=== PATIENT | male | born 1955 | race Caucasian/White ===

== ENCOUNTER → 2024-04-21 | Outpatient (CLI) | payer MEDICARE ==
[2024-04-21 19:58] LABS: BASOPHILS ABSOLUTE AUTO 0.07 K/mm3 (0.00-0.23); BASOPHILS PERCENT AUTO 1 % (0-2); EOSINOPHILS ABSOLUTE AUTO 0.02 K/mm3 (0.00-0.68); EOSINOPHILS PERCENT AUTO 0 % (0-6); Hematocrit 37.7 % (37.0-53.0); IMMATURE GRAN ABSOLUTE AUTO 0.02 K/mm3 (0.00-0.10); IMMATURE GRAN PERCENT AUTO 0 % (0-1); LYMPHOCYTES ABSOLUTE AUTO 1.58 K/mm3 (0.84-5.20); LYMPHOCYTES PERCENT AUTO 18 % (21-46); MONOCYTES ABSOLUTE AUTO 0.62 K/mm3 (0.16-1.47); MONOCYTES PERCENT AUTO 7 % (4-13); Mean Corpuscular HGB Conc 31.8 g/dL (31.5-36.5); Mean Corpuscular Volume 88 fL (80-100); Mean Platelet Volume 10.2 fL (9.1-12.4); NEUTROPHILS PERCENT AUTO 74 % (41-73); Platelet Count 472 K/mm3 (150-400); RDW Coefficient Variation 14.2 % (11.7-14.2); RDW Standard Deviation 45.1 fL (35.1-46.3); Red Blood Cell Count 4.29 M/mm3 (4.30-5.90); White Blood Cell Count 8.71 K/mm3 (4.00-11.30)
[2024-04-21 20:28] LABS: Alanine Aminotransfer (ALT/SGP 26 U/L (12-78); Albumin, Blood 3.2 g/dL (3.4-5.0); Albumin/Globulin Ratio 0.6 (0.8-1.8); Alk Phos 182 U/L (50-136); Anion Gap 10 mmol/L (3-11); Aspartate Aminotrans (AST/SGOT 22 U/L (12-37); Bilirubin, Total 0.3 mg/dL (0.1-1.0); Blood Urea Nitrogen 18 mg/dL (8-24); Bun/Creatinine Ratio 16.5 (12.0-20.0); CO2, Blood 26 mmol/L (21-32); Calcium, Blood 10.1 mg/dL (8.5-10.1); Chloride, Blood 103 mmol/L (98-108); Creatinine, Blood 1.09 mg/dL (0.60-1.20); Globulin, Blood 5.1 g/dL (2.2-4.0); Glomerular Filtration Rate 74 (60-); Glucose, Blood 99 mg/dL (70-99); Potassium, Blood 4.1 mmol/L (3.5-5.5); Sodium, Blood 135 mmol/L (136-145); Total Protein, Blood 8.3 g/dL (6.4-8.2)
== END | disposition home or self-care (01) ==
LOC: LAB 19:32 → LAB SHORT 19:32
PROVIDERS: Nurse Practitioner Family
DX: R35.0 Frequency of micturition (principal)
CPT/HCPCS: 80053; 83036; 85025; 87086; G0103

== ENCOUNTER → 2024-07-26 | Outpatient (CLI) | payer MEDICARE | END | disposition home or self-care (01) | LOC: LAB SHORT 13:17 → LAB 13:17 | DX: R39.89 Other symptoms and signs involving the genitourinary system (principal) | CPT/HCPCS: 87077; 87086; 87186 ==

== ENCOUNTER → 2024-08-02 | Outpatient (CLI) | payer MEDICARE ==
[2024-08-02 17:02] LABS: BASOPHILS ABSOLUTE AUTO 0.04 K/mm3 (0.00-0.23); BASOPHILS PERCENT AUTO 0 % (0-2); EOSINOPHILS ABSOLUTE AUTO 0.01 K/mm3 (0.00-0.68); EOSINOPHILS PERCENT AUTO 0 % (0-6); Hematocrit 33.1 % (37.0-53.0); Hemoglobin 10.7 g/dL (13.5-17.5); IMMATURE GRAN PERCENT AUTO 1 % (0-1); LYMPHOCYTES ABSOLUTE AUTO 1.18 K/mm3 (0.84-5.20); LYMPHOCYTES PERCENT AUTO 6 % (21-46); MONOCYTES PERCENT AUTO 6 % (4-13); Mean Corpuscular HGB 24.5 pg (26.0-34.0); Mean Corpuscular HGB Conc 32.3 g/dL (31.5-36.5); Mean Corpuscular Volume 76 fL (80-100); Mean Platelet Volume 9.3 fL (9.1-12.4); NEUTROPHILS PERCENT AUTO 86 % (41-73); Platelet Count 818 K/mm3 (150-400); RDW Coefficient Variation 14.8 % (11.7-14.2); Red Blood Cell Count 4.37 M/mm3 (4.30-5.90); White Blood Cell Count 18.63 K/mm3 (4.00-11.30)
[2024-08-02 17:16] LABS: Albumin, Blood 2.1 g/dL (3.4-5.0); Albumin/Globulin Ratio 0.4 (0.8-1.8); Bilirubin, Total 0.5 mg/dL (0.1-1.0); Bun/Creatinine Ratio 19.6 (12.0-20.0); Calcium, Blood 11.2 mg/dL (8.5-10.1); Creatinine, Blood 1.43 mg/dL (0.60-1.20); Globulin, Blood 5.4 g/dL (2.2-4.0); Potassium, Blood 3.5 mmol/L (3.5-5.5); Total Protein, Blood 7.5 g/dL (6.4-8.2)
== END ==
LOC: LAB 16:35 → LAB SHORT 16:35
PROVIDERS: Internal Medicine Hematology & Oncology
DX: C67.8 Malignant neoplasm of overlapping sites of bladder (principal)
CPT/HCPCS: 80053; 85025

== ENCOUNTER 2024-08-09 13:37 | Inpatient (IN) | payer MEDICARE, OTHER ==
[~2024-08-09] VITALS: Ht 180.3 cm; Wt 45.5 kg
[2024-08-09 15:46] LABS: BASOPHILS ABSOLUTE AUTO 0.04 K/mm3 (0.00-0.23); BASOPHILS PERCENT AUTO 0 % (0-2); EOSINOPHILS PERCENT AUTO 0 % (0-6); Hematocrit 32.9 % (37.0-53.0); Hemoglobin 10.3 g/dL (13.5-17.5); IMMATURE GRAN PERCENT AUTO 1 % (0-1); LYMPHOCYTES ABSOLUTE AUTO 0.82 K/mm3 (0.84-5.20); LYMPHOCYTES PERCENT AUTO 4 % (21-46); MONOCYTES ABSOLUTE AUTO 0.94 K/mm3 (0.16-1.47); MONOCYTES PERCENT AUTO 5 % (4-13); Mean Corpuscular HGB 23.6 pg (26.0-34.0); Mean Corpuscular HGB Conc 31.3 g/dL (31.5-36.5); Mean Corpuscular Volume 75 fL (80-100); Mean Platelet Volume 8.8 fL (9.1-12.4); NEUTROPHILS ABSOLUTE AUTO 16.58 K/mm3 (1.96-9.15); NEUTROPHILS PERCENT AUTO 89 % (41-73); RDW Coefficient Variation 15.8 % (11.7-14.2); RDW Standard Deviation 42.8 fL (35.1-46.3); Red Blood Cell Count 4.37 M/mm3 (4.30-5.90); White Blood Cell Count 18.58 K/mm3 (4.00-11.30)
[2024-08-09 15:52] LABS: Platelet Count 1098 K/mm3 (150-400)
[2024-08-09 16:09] LABS: Albumin, Blood 2.3 g/dL (3.4-5.0); Albumin/Globulin Ratio 0.4 (0.8-1.8); Bilirubin, Total 0.6 mg/dL (0.1-1.0); Bun/Creatinine Ratio 25.4 (12.0-20.0); Calcium, Blood 11.7 mg/dL (8.5-10.1); Creatinine, Blood 1.73 mg/dL (0.60-1.20); Globulin, Blood 5.8 g/dL (2.2-4.0); Potassium, Blood 3.8 mmol/L (3.5-5.5); Total Protein, Blood 8.1 g/dL (6.4-8.2)
[2024-08-09] MEDS ORDERED: Lactated Ringer's 1,000 ML IV ONE (17:35)
[2024-08-09] MEDS ORDERED: CefTRIAXone Sodium 2,000 MG in NS 100 ML IV ONE (17:40)
[2024-08-09] MEDS ORDERED: HYDROmorphone HCl/Pf 1MG SYR IV ONE (17:50)
[2024-08-09 18:12] LABS: Source, Urine Nephrostomy
[2024-08-09 18:15] LABS: Appearance, Urine Cloudy (Clear); Bilirubin, Urine Neg (Neg); Blood, Urine 5+ (Neg); Color, Urine Yellow (P-Yellow); Glucose Qualitative, Urine Neg (Neg); Ketones, Urine Neg (Neg); Leukocyte Esterase, Urine 3+ (Neg); Nitrite, Urine Neg (Neg); Protein, Urine 2+ (Neg); Urobilinogen, Urine NORM (Normal)
[2024-08-09 18:25] LABS: White Blood Cells, Urine 50-100 /hpf (0-5)
[2024-08-09 18:26] LABS: Amorphous Light (0-Heavy); Bacteria Many /hpf; Hyaline Casts 0-2 /lpf (0-2); Squamous Epithelial Cells Few /hpf (Few)
[2024-08-09 18:27] LABS: Granular Casts 0-2 /lpf (0)
[2024-08-09 18:29] LABS: Renal Epithelial Rare /hpf (0-Rare)
[2024-08-09] MEDS ORDERED: Lactated Ringer's 1,000 ML IV SCH (20:30)
[2024-08-09] MEDS ORDERED: HYDROcodone 5-APAP 325 TAB PO PRN (20:35)
[2024-08-09] MEDS ORDERED: Ondansetron HCl 2 MG / ML 2ML Vial IV PRN (20:35)
[2024-08-09] MEDS ORDERED: Albuterol 2.5 MG/3 ML VIAL INH PRN (20:35)
[2024-08-09 20:39] LABS: Source, Urine Clean Catch
[2024-08-09] MEDS ORDERED: Lactated Ringer's 500 ML IV ONE (21:00)
[2024-08-09] MEDS ORDERED: Heparin Sodium,Porcine 5,000 UNIT/0.5 ML SDV SC SCH (21:00)
[2024-08-09] MEDS ORDERED: Lactobacil 2-S.Thermo-Bifido 1 1 Cap PO SCH ×2 (21:00)
[2024-08-09 22:04] LABS: Amorphous Heavy (0-Heavy); Bacteria Many /hpf; Squamous Epithelial Cells Rare /hpf (Few); Triple Phosphate Crystals Many /hpf
[2024-08-09 22:06] LABS: Source, Urine Nephrostomy
[2024-08-09 22:12] LABS: Appearance, Urine Hazy (Clear); Bilirubin, Urine Neg (Neg); Blood, Urine 5+ (Neg); Color, Urine Yellow (P-Yellow); Glucose Qualitative, Urine Neg (Neg); Ketones, Urine Neg (Neg); Leukocyte Esterase, Urine 3+ (Neg); Nitrite, Urine Neg (Neg); Protein, Urine 2+ (Neg); Specific Gravity, Urine 1.015 (1.003-1.022); Urobilinogen, Urine NORM (Normal)
[2024-08-09 22:30] LABS: Amorphous Mod (0-Heavy); Bacteria Many /hpf; Mucus Light (0-Heavy); Squamous Epithelial Cells Rare /hpf (Few); White Blood Cells, Urine 50-100 /hpf (0-5)
[2024-08-09 22:31] LABS: Triple Phosphate Crystals Rare /hpf
[2024-08-09 22:33] LABS: Appearance, Urine Hazy (Clear); Bilirubin, Urine Neg (Neg); Blood, Urine 5+ (Neg); Color, Urine Pale Yellow (P-Yellow); Glucose Qualitative, Urine Neg (Neg); Ketones, Urine Neg (Neg); Leukocyte Esterase, Urine 3+ (Neg); Nitrite, Urine Neg (Neg); Protein, Urine 4+ (Neg); Specific Gravity, Urine 1.015 (1.003-1.022); Urobilinogen, Urine NORM (Normal)
[2024-08-09 23:39] VITALS: BP 115/68
--- NOTE | 2024-08-10 00:28 | NUR ---
ADMIT NOTE 68 YR OLD MALE ADMITTED TO FLOOR FROM THE ED WITH DX OF INFESTION OF NEPHROSTOMY TUBE. ED REPORTED ALSO SOME APPARENT HALLUCINATIONS. UPON ARRIVAL, NOTE BILAT NEPHROSTOMY TUBES. LEFT DRAINIG 300 CC, RIGHT EMPTIED ABOUT 20 ML. ALERT AND ORIENTED TO QUESTIONS ASKED. ORIENTED TO USE OF CALL LIGHT. CALL LIGHT IN REACH. NPO FOR POSSIBLE PROCEDURE.
[2024-08-10] MEDS ORDERED: Piperacillin/Tazobactam Sod 2.25 GM in NS 50 ML IV SCH (00:39)
[2024-08-10] MEDS ORDERED: NS 250 ML IV PRN (01:20)
--- NOTE | 2024-08-10 02:13 | NUR ---
CALLING OUT AT INTERVALS, VERBAL RESPONSE NOT CONGRUENT WITH SURROUNDINGS. CALLING OUT TO DOGS AND INDIVIDUALS NOT IN THE ROOM. CALL LIGHT IN REACH. REDIRECTED.
--- NOTE | 2024-08-10 03:51 | NUR ---
FAST FOOD SALES ASSISTANT SUMMARY VSS. WAS ADMITTED EARLIER IN THE SHIFT WITH DX OF INFECTION OF NEPHROSTIMY CATH. HAS BILAT NEPHROSTOMY TUBES. ALSO, NOTED ON SKIN CHECK, SMALL STAGE 2 ULCER OF COCCYX. MD WAS NOTIFIED ANDD ANTIBIOTICS ORDERED - SEE MAR AND COCCYX COVERED WITH MEPILEX FOR COMFORT. AWAKE AT INTERVALS, CALLING OUT TO INDIVIVUALS AND A DOG THAT WERE NOT IN THE ROOM. ED RN REPORTED PT HAD BEEN HALLUCINATING IN THE ED. ORIENTED TO UE OF CALL LIGHT AND BED CONTROL. RAILS UP X 2 AND BED IN LOW POSITION FOR SAFETY. PT PULLED OFF ONE IV AND WAS REDIRECTED RE THE OTHER. IVF/AND ANTIBIOTICS INFUSING - SEE MAR FOR DETAILS. CONSULT CALLED IN FOR MD CONSULT RE NEPH TUBE. WILL MONITOR
[2024-08-10 05:22] VITALS: BP 114/70
[2024-08-10 05:52] LABS: BASOPHILS ABSOLUTE AUTO 0.01 K/mm3 (0.00-0.23); BASOPHILS PERCENT AUTO 0 % (0-2); EOSINOPHILS PERCENT AUTO 0 % (0-6); Hematocrit 26.2 % (37.0-53.0); Hemoglobin 8.2 g/dL (13.5-17.5); IMMATURE GRAN ABSOLUTE AUTO 0.09 K/mm3 (0.00-0.10); IMMATURE GRAN PERCENT AUTO 1 % (0-1); LYMPHOCYTES ABSOLUTE AUTO 0.99 K/mm3 (0.84-5.20); LYMPHOCYTES PERCENT AUTO 8 % (21-46); MONOCYTES ABSOLUTE AUTO 0.92 K/mm3 (0.16-1.47); MONOCYTES PERCENT AUTO 7 % (4-13); Mean Corpuscular HGB 23.7 pg (26.0-34.0); Mean Corpuscular HGB Conc 31.3 g/dL (31.5-36.5); Mean Corpuscular Volume 76 fL (80-100); Mean Platelet Volume 8.7 fL (9.1-12.4); NEUTROPHILS ABSOLUTE AUTO 11.25 K/mm3 (1.96-9.15); NEUTROPHILS PERCENT AUTO 85 % (41-73); Platelet Count 875 K/mm3 (150-400); RDW Coefficient Variation 15.8 % (11.7-14.2); RDW Standard Deviation 43.1 fL (35.1-46.3); Red Blood Cell Count 3.46 M/mm3 (4.30-5.90); White Blood Cell Count 13.26 K/mm3 (4.00-11.30)
[2024-08-10 06:17] LABS: Bun/Creatinine Ratio 28.1 (12.0-20.0); Calcium, Blood 10.8 mg/dL (8.5-10.1); Creatinine, Blood 1.53 mg/dL (0.60-1.20); Magnesium, Blood 1.6 mg/dL (1.6-2.4); Potassium, Blood 3.1 mmol/L (3.5-5.5)
[2024-08-10 07:13] VITALS: BP 125/64
--- NOTE | 2024-08-10 16:47 | NUR ---
SHIFT SUMMARY PT AOX2-3, SISTER AT THE BS. SHE IS VERY HELPFUL IN KEEPING THE PT CALM AND PREVENTING HIM FROM PULLING ANY IV'S. PT HAS BL NEPHROSTOMY TUBES, THE R HAS MINIMAL TO NO DRAINAGE. L NEPHROSTOMY HAS OUTPUT, DOCUMENTED IN THE CHART. PT IS TO BE NPO AT MIDNIGHT TONIGHT FOR NEPHROSTOMY TUBE REPLACEMENT. REPOSITIONS SELF IN BED. NO ACUTE COMPLAINTS. CALL LIGHT WITHIN REACH, BED LOCKED AND IN THE LOWEST POSITION. WILL REPORT TO ONCOMING NURSE.
[2024-08-10 16:57] VITALS: BP 133/72
[2024-08-10] MEDS ORDERED: Nicotine 14 MG PATCH TOP SCH (17:00)
[2024-08-10 19:42] VITALS: BP 103/67
[2024-08-10] MEDS ORDERED: Arginine/Glutamine/Calcium Hmb 1 Packet PO SCH (21:00)
[2024-08-11 02:31] VITALS: BP 122/60
--- NOTE | 2024-08-11 03:28 | NUR ---
TAB CUTTING MACHINE OPERATOR SUMMARY VSS. MORE ALERT TO QUESTIONS ASKED THAN NOTICED 24 HR AGO. SISTER AT BEDSIDE FOR PT SUPPORT, PT VOICED FEELING BETTER WITH HER NEAR. IV ANTIBIOTICS INFUSING. NPO SINCE MIDNIGHT FOR PROCEDURE SCHEDULED LATER TODAY. BILAT NEPHROSTOMY TUBES, LEFT DRAINING, RIGHT SIDE NOT DRAINING WELL. HAS BEEN RESTING QUIETLY AT INTERVALS. CALL LIGHT IN REACH, RAILS UP X 2 AND BED IN LOW POSITION FOR SAFETY. WILL CONTINUE TO MONITOR
[2024-08-11 06:40] LABS: Magnesium, Blood 1.5 mg/dL (1.6-2.4); Phosphorus, Blood 2.7 mg/dL (2.5-4.9)
[2024-08-11 07:18] VITALS: BP 123/66
[2024-08-11] MEDS ORDERED: Mag Sulfate 1 GM/D5% 100ML 100 ML IV STA (08:09)
[2024-08-11 08:20] LABS: BASOPHILS ABSOLUTE AUTO 0.01 K/mm3 (0.00-0.23); BASOPHILS PERCENT AUTO 0 % (0-2); EOSINOPHILS PERCENT AUTO 0 % (0-6); Hematocrit 24.9 % (37.0-53.0); Hemoglobin 7.9 g/dL (13.5-17.5); IMMATURE GRAN PERCENT AUTO 1 % (0-1); LYMPHOCYTES PERCENT AUTO 8 % (21-46); MONOCYTES PERCENT AUTO 7 % (4-13); Mean Corpuscular HGB 24.4 pg (26.0-34.0); Mean Corpuscular HGB Conc 31.7 g/dL (31.5-36.5); Mean Corpuscular Volume 77 fL (80-100); Mean Platelet Volume 9.1 fL (9.1-12.4); NEUTROPHILS ABSOLUTE AUTO 12.07 K/mm3 (1.96-9.15); NEUTROPHILS PERCENT AUTO 85 % (41-73); Platelet Count 846 K/mm3 (150-400); RDW Standard Deviation 44.7 fL (35.1-46.3); Red Blood Cell Count 3.24 M/mm3 (4.30-5.90); White Blood Cell Count 14.28 K/mm3 (4.00-11.30)
[2024-08-11 08:31] LABS: Bun/Creatinine Ratio 24.6 (12.0-20.0); Calcium, Blood 10.5 mg/dL (8.5-10.1); Creatinine, Blood 1.75 mg/dL (0.60-1.20)
[2024-08-11] MEDS ORDERED: Thiamine HCl 100 MG Tab PO SCH (09:00)
[2024-08-11] MEDS ORDERED: Multivitamins 1 Tab PO SCH (09:00)
[2024-08-11] MEDS ORDERED: Folic Acid 1 MG TAB PO SCH (09:00)
[2024-08-11] MEDS ORDERED: Potassium Chloride 40 MEQ in NS 250 ML IV STA (15:39)
[2024-08-11 15:56] VITALS: BP 123/75
--- NOTE | 2024-08-11 16:05 | NUR ---
PATIENT UPPER ARMS STOPPED MOVING THIS AM, REPORTED TO DR FRANCIS, NEGATIVE NEURO CHECK, PUPILS EQUAL, MOVING FINGER TIPS NOW. JUST BACK FROM SPINE MRI, WAITING FOR RESULTS, SISTER AT BEDSIDE HELPFUL WITH CARE, CHANGED COCCYX MEPILEX, CALL LIGHT WITH IN REACH
[2024-08-11 19:18] VITALS: BP 147/86
--- NOTE | 2024-08-11 19:37 | NUR ---
NO IMPROVEMENT IN ARMS, SISTER HELPFUL AT BEDSIDE, PUPILS EVEN, HALLUCINATING THINGS IN THE ROOM, SPEECH MORE MUMBLED. MRI RESULTS IN REPORTED TO PATIENT AND FAMILY TO WAITING FOR THE DR TO EXPLAIN RESULTS. PT/OT TO WORK WITH PATIENT TOMORROW. CALL LIGHT WITH IN REACH, REPORT TO KERRY LARSON
--- NOTE | 2024-08-12 04:26 | NUR ---
SHIFT SUMMARY PATIENT HAD NO ACUTE CHANGES. AXOX 2-3 WITH CONFUSION AND HALLUCINATIONS AT TIMES. BEDREST. ARMS REMAIN FLACCID SINCE DAY SHIFT. RIGHT PUPIL LARGER THAN LEFT. PIV INTACT. IV ABX INFUSED. LR INFUSING @ 125 mL/HR. DENIES CHEST PAIN, SOB, AND N/V. VSS/AFEBRILE. SISTER STAYS OVERNIGHT. CALL LIGHT IN REACH. BED IN LOWEST POSITION. WILL CONTINUE TO MONITOR UNTIL DAY SHIFT NURSE ASSUMES CARE.
[2024-08-12 05:38] LABS: BASOPHILS ABSOLUTE AUTO 0.02 K/mm3 (0.00-0.23); BASOPHILS PERCENT AUTO 0 % (0-2); EOSINOPHILS PERCENT AUTO 0 % (0-6); Hematocrit 24.7 % (37.0-53.0); Hemoglobin 7.5 g/dL (13.5-17.5); IMMATURE GRAN ABSOLUTE AUTO 0.13 K/mm3 (0.00-0.10); IMMATURE GRAN PERCENT AUTO 1 % (0-1); LYMPHOCYTES ABSOLUTE AUTO 0.93 K/mm3 (0.84-5.20); LYMPHOCYTES PERCENT AUTO 7 % (21-46); MONOCYTES ABSOLUTE AUTO 0.74 K/mm3 (0.16-1.47); MONOCYTES PERCENT AUTO 5 % (4-13); Mean Corpuscular HGB 23.7 pg (26.0-34.0); Mean Corpuscular HGB Conc 30.4 g/dL (31.5-36.5); Mean Corpuscular Volume 78 fL (80-100); Mean Platelet Volume 9.1 fL (9.1-12.4); NEUTROPHILS ABSOLUTE AUTO 12.26 K/mm3 (1.96-9.15); NEUTROPHILS PERCENT AUTO 87 % (41-73); Platelet Count 839 K/mm3 (150-400); RDW Coefficient Variation 16.3 % (11.7-14.2); RDW Standard Deviation 45.9 fL (35.1-46.3); Red Blood Cell Count 3.16 M/mm3 (4.30-5.90); White Blood Cell Count 14.08 K/mm3 (4.00-11.30)
[2024-08-12 06:06] LABS: Bun/Creatinine Ratio 24.5 (12.0-20.0); Calcium, Blood 11.1 mg/dL (8.5-10.1); Creatinine, Blood 1.51 mg/dL (0.60-1.20); Magnesium, Blood 1.5 mg/dL (1.6-2.4); Phosphorus, Blood 2.3 mg/dL (2.5-4.9)
[2024-08-12 07:57] VITALS: BP 130/75
[2024-08-12] MEDS ORDERED: Mag Sulfate 1 GM/D5% 100ML 100 ML IV STA (11:32)
[2024-08-12] MEDS ORDERED: Potassium Phosphate Dibasic 30 MM in Dextrose 5% 500 ML IV STA (11:33)
[2024-08-12 14:56] VITALS: BP 137/70
--- NOTE | 2024-08-12 16:42 | NUR ---
SUPPORTIVE VISIT - CALLED TO ROOM BY PRIMARY RN PROVIDER WAS IN ROOM UPDATING PT AND HIS SISTER ON WORSENING CANCER DX. PT IS ALERT, ORIENTED TO SELF, FAMILY AND LOCATION. IT IS DIFFICULT TO ASSESS HIS FULL UNDERSTANDING OF NEW DX. SPEECH IS DIFFICULT TO UNDERSTAND AT TIMES. HIS SPEECH IS AT BASELINE PER HIS SISTER. THIS PC RN REPEATED BACK TO PT HIS STATEMENTS FOR CLARIFICATION. HE WOULD EITHER SHAKE HIS HEAD NO OR SMILE AND NOD YES. WHEN ASKED ABOUT CODE STATUS, PT CONFIRMED HE WANTS TO REMAIN A FULL CODE AND FULL TREATMENT, INCLUDING INTUBATION IF NEEDED. [facility] EDUCATION ON CPR VS DNR PROVIDED. DORA VERBALIZED HIS SISTER EDGARD NEGRETE IS HIS DECISION MAKER WHEN HE CAN NO LONGER SPEAK FOR HIMSELF. EDGARD REPORTS PT HAS HAD A STEADY DECLINE IN THE LAST THREE WEEKS. HIS MOBILITY HAS GONE FROM WALKING AROUND THE HOUSE MULTIPULE TIMES A DAY TO BARELY BEING ABLE TO WALK AROUND HIS BED. INCONTENT OF BLADDER IN THE LAST COUPLE OF DAYS. YESTERDAY HE WAS ABLE TO DRINK WITH A STRAW. THIS MORNING HE WAS ONLY ABLE TO TAKE FLUIDS OFF OF A SPOON. PT LIVES WITH HIS SISTER, EDGARD, BROTHER IN LAW AND FRIEND, JEFF. PERMISSION RECEIVED TO TALK WITH JEFF HIDALGOJAVIER RECEIVED. OBTAINED ORDERS FROM PROVIDER TO CHANGE DIET, SPEECH AND DIETARY EVALS. ORDERS PLACED ACCORDINGLY.
--- NOTE | 2024-08-12 17:57 | NUR ---
PATIENT MENTATION, INTAKE, PHYSICAL MOVEMENTS HAVE CONTINUED TO DECREASE, PALLIATIVE CONSULT, PATIENT AND SISTER AGREED TO FULL CODE AT THIS TIME, PATIENT ONLY WHISPERING AND MOUTHING WORDS. FAMILY MEMBERS CAME TO VISIT, NEW MEPILEX TO STAGE ONE COCCYX ULCER, JOHN NEP TUBES DRAINING L>R, HEART RATE INCREASED 127, RESPS INCREASED TO 30'S, TEMP INCREASED, REFUSED PAIN MEDICATIONS OR TYLENOL. CALL LIGHT WITH IN REACH, SISTER EDGARD HELPFUL WITH CARE AND PATIENT NEEDS
[2024-08-12 19:17] VITALS: BP 151/77
[2024-08-12] MEDS ORDERED: Ciprofloxacin 400MG/D5 200ML 200 ML IV SCH (20:00)
[2024-08-12] MEDS ORDERED: Dexamethasone Sodium Phosphate 4 MG/ML 1ML Vial IV SCH (20:00)
--- NOTE | 2024-08-13 04:08 | NUR ---
SHIFT SUMMARY PATIENT HAD NO ACUTE CHANGES. ALERT TO SELF AND FAMILY, BEDREST. PIV INTACT. IV ABX INFUSED. LR INFUSING @ 125 mL/HR. BILATERAL NEPHROSTOMY TUBES INTACT. DENIES CHEST PAIN, SOB, AND N/V. VSS/AFEBRILE. ARMS FLACCID. SPEECH MUMBLES. CONSULT CALLED INTO DR FERNANDEZ ANSWERING SERVICE. AWAKE MOST OF THE SHIFT. FAMILY PRESENT T/O SHIFT. CALL LIGHT IN REACH. BED IN LOWEST POSITION. WILL CONTINUE TO MONITOR UNTIL DAY SHIFT NURSE ASSUMES CARE.
[2024-08-13 04:56] VITALS: BP 145/75
[2024-08-13 06:06] LABS: BASOPHILS ABSOLUTE AUTO 0.01 K/mm3 (0.00-0.23); BASOPHILS PERCENT AUTO 0 % (0-2); EOSINOPHILS PERCENT AUTO 0 % (0-6); Hematocrit 25.1 % (37.0-53.0); Hemoglobin 7.4 g/dL (13.5-17.5); IMMATURE GRAN PERCENT AUTO 1 % (0-1); LYMPHOCYTES ABSOLUTE AUTO 0.97 K/mm3 (0.84-5.20); LYMPHOCYTES PERCENT AUTO 7 % (21-46); MONOCYTES ABSOLUTE AUTO 0.67 K/mm3 (0.16-1.47); MONOCYTES PERCENT AUTO 5 % (4-13); Mean Corpuscular HGB 23.9 pg (26.0-34.0); Mean Corpuscular HGB Conc 29.5 g/dL (31.5-36.5); Mean Corpuscular Volume 81 fL (80-100); NEUTROPHILS ABSOLUTE AUTO 12.52 K/mm3 (1.96-9.15); NEUTROPHILS PERCENT AUTO 88 % (41-73); Platelet Count 721 K/mm3 (150-400); RDW Coefficient Variation 16.8 % (11.7-14.2); RDW Standard Deviation 49.1 fL (35.1-46.3); Red Blood Cell Count 3.09 M/mm3 (4.30-5.90); White Blood Cell Count 14.27 K/mm3 (4.00-11.30)
[2024-08-13 06:31] LABS: Albumin, Blood 1.8 g/dL (3.4-5.0); Albumin/Globulin Ratio 0.4 (0.8-1.8); Bilirubin, Total 0.3 mg/dL (0.1-1.0); Bun/Creatinine Ratio 21.2 (12.0-20.0); Calcium, Blood 10.5 mg/dL (8.5-10.1); Creatinine, Blood 1.65 mg/dL (0.60-1.20); Globulin, Blood 4.3 g/dL (2.2-4.0); Magnesium, Blood 1.8 mg/dL (1.6-2.4); Percent Saturation 13.2 % (20.0-50.0); Phosphorus, Blood 3.9 mg/dL (2.5-4.9); Potassium, Blood 3.8 mmol/L (3.5-5.5); Total Protein, Blood 6.1 g/dL (6.4-8.2)
[2024-08-13 07:29] VITALS: BP 127/75
--- NOTE | 2024-08-13 09:37 | NUR ---
COLLABORATED WITH MANAGER HUMAN RESOURCES RE: PT'S UNINTENTIONAL WT LOSS SINCE THE END OF MARCH. PT REPORTS HIS LAST WT WAS 120 LBS, BMI 16.7. HE'S NOT SURE WHEN THAT WT WAS TAKEN (LAST COUPLE OF MONTHS). WT AT START OF THIS ADMISSION WAS 100 LBS. BMI 13.9 CACHECTIC. WITH PT'S RAPID RESPIRATORY RATE WITH ACCESSORY MUSCLE USE AT BASELINE IS LIKELY BURNING OFF MORE CALORIES THAN PT IS TAKING IN. MANAGER HUMAN RESOURCES TO EVALUATE PT'S CALORIC NEEDS AND POTENTIAL OPTIONS TO INCREASE CALORIES AND PROTEINS.
--- NOTE | 2024-08-13 13:06 | NUR ---
GOALS OF CARE JOINT VISIT WITH PROVIDER. MET WITH PT, SISTER DEGARD, BROTHER ZAYNAB "KRISTEL", SISTER [place]. DORA GREETED PROVIDER AND THIS PC RN WITH A GRIN AND WAS WELCOMING OF VISIT. PROVIDER REVIEWED CANCER DX AND PROGRESSION OF. SHE INFORMED PT AND FAMILY OF HER CONVERSATION WITH DR. FERNANDEZ (PT'S ESTABLISHED ONCOLOGIST). PROGNOSIS IS POOR AND CHEMO WOULD BE PALLIATIVE ONLY. IT'S IMPORTANT TO DORA THAT HE BE ABLE TO GET OUT OF BED. HE HAS NOT BEEN ABLE TO GET OUT OF BED THIS VISIT. HE'S NOT BEEN ABLE TO LIFT HIS ARMS INDEPENDENTLY EITHER. HE HAS REQUIRED FEEDING ASSISTANCE WITH MEALS. SUDDEN LIMITED MOBILITY LIKELY D/T MET TO SPINE WITH POSSIBLE COMPRESSION OF NERVES. PT/OT ORDERED TO EVALUATE PT'S ABILITIES FOR PT'S METAL HEALTH AND HIS SISTERS EXPECTED CARES ON D/C HOME. HOPE IS FOR CURRENT TX OF ABX AND STERIODS TO RESOLVE SEPSIS AND REDUCE INFLAMATION. PROVIDED EDUCAION RE: HOSPICE AND THE SUPPORTS HOSPICE PROVIDERS. ALLOWED TIME FOR QUESTIONS. THERAPUTIC LISTENING PROVIDED FOR SISTER AND BROTHER. PT'S GOAL IS TO RETURN HOME AND FOCUS ON QUALITY OF LIFE. HE STATED, "I DON'T WANT TO . I WANT TO HELP PEOPLE. I WANT TO LEAVE THEM WITH A SMILE." REASSURED PT, HOSPICE IS NOT TO SPEED UP THE DYING PROCESS. HOSPICE IS FOR SYMPTOM MANAGEMENT, FOCUSING CARE ON QUALITY OF LIFE AND ADDITIONAL SUPPORT. AFTER THOUROGH EDUCATION FROM PROVIDER AND PC RN, PT ELECTS TO BE DNR WITH LIMITED MEDICAL INTERVENTIONS. POLST FORM COMPLETED TO REFLECT PT'S WISHES. WITH PT'S INABLILITY TO RAISE HIS ARMS, HE ELECTED SISTER EDGARD TO SIGN THE POLST. PLAN: D/C HOME WITH HOSPICE ONCE PT HAS BEEN OPTIMIZED FOR MANAGEMENT OF INFECTION, INFLAMATION AND PAIN. UPDATED BEDSIDE RN OF CARE GOALS AND UPDATED CODE STATUS. NOTIFIED CARE MANAGEMENT BY PHONE FOR D/C PLANNING. ORDERS PLACED PER PROVIDER REQUEST.
[2024-08-13 15:29] VITALS: BP 119/58
[2024-08-13] MEDS ORDERED: Dextrose 5% 1,000 ML IV SCH (18:00)
[2024-08-13 19:25] VITALS: BP 123/75
[2024-08-14] VITALS (7 sets, daily range): BP systolic 115–139; BP diastolic 72–75
--- NOTE | 2024-08-14 04:11 | NUR ---
SHIFT SUMMARY PATIENT MORE ALERT THIS SHIFT. AXOX 3 AND BEDREST. LOTS OF FAMILY IN-OUT OF ROOM. BROTHER AND SPOUSE STAYING OVERNIGHT. DENIES CHEST PAIN AND N/V. VSS/AFEBRILE. ON 2L O2 NC. PIV INTACT. IV ABXS INFUSED. D5 INFUSING @ 100mL/HR. CALL LIGHT IN REACH. BED IN LOWEST POSITION. WILL CONTINUE TO MONITOR UNTIL DAY SHIFT NURSE ASSUMES CARE.
[2024-08-14 05:47] LABS: Hematocrit 24.6 % (37.0-53.0); Hemoglobin 7.5 g/dL (13.5-17.5); Mean Corpuscular HGB 24.3 pg (26.0-34.0); Mean Corpuscular HGB Conc 30.5 g/dL (31.5-36.5); Mean Corpuscular Volume 80 fL (80-100); Mean Platelet Volume 9.2 fL (9.1-12.4); Platelet Count 615 K/mm3 (150-400); RDW Coefficient Variation 16.8 % (11.7-14.2); Red Blood Cell Count 3.09 M/mm3 (4.30-5.90); White Blood Cell Count 16.65 K/mm3 (4.00-11.30)
[2024-08-14 06:18] LABS: Calcium, Blood 10.6 mg/dL (8.5-10.1); Creatinine, Blood 1.38 mg/dL (0.60-1.20); Potassium, Blood 3.8 mmol/L (3.5-5.5)
[2024-08-14] MEDS ORDERED: Dextrose 5% 1,000 ML IV SCH (17:10)
--- NOTE | 2024-08-14 17:52 | NUR ---
END OF SHIFT NOTE PATIENT A/OX2-3, FAMILY AT BEDSIDE TROUGHOUT THE DAY. 5LO2 TO MAINTAIN SATS >90%. NEPHROSTOMY DRAINS BILATERALLY, L PUTTING OUT MUCH MORE THAN R. DRESSING CHANGED TO PRESSURE SORE ON COCCYX. TURNING Q2 HOURS. PATIENT VERY WEAK AND ON BEDREST. ST PLACED PATIENT ON PUREE DIET TODAY, POOR INTAKE. DIARRHEA X2 THIS SHIFT. PATIENT DENIES ANY PAIN OR DISCOMFORT. PLAN IS HOME WITH HOSPICE CARE TOMORROW.
[2024-08-14] MEDS ORDERED: Sod Ferric Gluc Complx/Sucrose 125 MG in NS 100 ML IV SCH (18:00)
[2024-08-15] MEDS ORDERED: LORazepam 2 MG/ML 1ML Injection IV PRN ×3 (00:55→02:45)
[2024-08-15] MEDS ORDERED: LORazepam 2 MG/ML 1ML Injection IV ONE ×2 (01:00→01:25)
[2024-08-15 01:29] VITALS: BP 163/82
--- NOTE | 2024-08-15 02:05 | NUR ---
PT RESP STATUS SIGNIFICANTLY DECLINING: AT BEGINNING OF SHIFT, PT'S SPO2 WAS 80'S% ON 5L O2 VIA NC W/SHALLOW TACHY RESPS OBSERVED AND COARSE LS AUSCULTATED BILATERALLY. O2 WAS TITRATED TO 9L HIGH FLOW O2 TO MAINTAIN SPO2>90%. RT CONSULTED AND PROVIDED BREATHING TX FOR MILD IMPROVEMENT IN WOB/DYSPNEA. NOTIFIED OF INCREASED O2 DEMANDS IN PRESENCE OF CONTINUED O2 DESATURATIONS, TACHYPNEA AND TACHYCARDIA. STAT CXR AND CONT. BIOX WAS RX'D AND COMMENCED. HE BEGAN TO DESAT AGAIN, BARELY SUSTAINING 86% AND WAS TITRATED TO 13L VIA OXIMASK TO SUSTAIN SPO2>90%. RR 18-20'S AND COARSE LS REMAINED UNCHANGED DESPITE ENCOURAGEMENT TO DEEP BREATH AND COUGH. PT'S COUGH IS VERY WEAK AND POACHER OPERATOR W/INABILTY TO MOVE SECRETIONS. MADE AWARE AND CPAP/BPAP PROTOCOL WAS RX'D. PT UNDERSTOOD RATIONALE FOR ESCALATING RESPIRATORY INTERVENTIONS AND VERIFIED DESIRE TO "TRY THE MASK". HE DENIED ISSUES W/ANXIETY/CLAUSTROPHOBIA STATING "WE GOTTA DO WHAT WE GOTTS DO, I JUST WANT TO GET HOME". PT'S SISTER (EDGARD) REMAINS AND BEDSIDE ASSISTING TO PROVIDE COMFORT. PT EXPRESSED INABILITY TO TOLERATE CPAP MASK W/HIGH ANXIETY BUT SPO2 WAS JUST 70'S-80'S% VIA CPAP W/15L O2 BLEED IN. RR WAS 30'S W/INCREASED WOB, DYSPNEA AND HR NOW UP TO 120-130'S. STAFF EXPLAINED NECESSITY OF MASK TO MAINTAIN SPO2 AND OFFERED ANXIETY MEDS TO ASSIST IN TOLERATING MASK. DNI/DNR STATUS WAS VERIFIED AND VISITED TO DISCUSS PROGNOSIS, INTERVENTIONS AND OPTIONS. PT WAS AGGREABLE TO TRIALING ANXIETY MEDS BUT EXPLAINED HE DIDN'T WANT TO WEAR CPAP IF "IT WASN'T WORKING" AND APPEARED TO UNDERSTAND POSSIBLE PROGRESSION TOWARD COMFORT CARE STATUS. 0.25MG IV ATIVAN RX'D X2 DOSES FOR SEDATING AFFECT BUT PT CONT'D TO DESAT TO 70'S% ON 15L O2 BLEED VIA CPAP. RR SUSTAINS 20'S AND ACCESSORY MUSCLE USE WITH PURSED LIP BREATHING OBSERVED. PT'S SISTER (EDGARD) REMAINED AT BEDSIDE AND EXPRESSED UNDERSTANDING AND DESIRE TO TRANSITION TO COMFORT MEASURES. PT LOC DECREASING AND PT APPEARED MORE SEDATED AND UROUSABLE. MADE AWARE AND COMFORT CARE ORDERS WERE PLACED. IVF STOPPED AND PT SWITCHED TO OXIMASK FOR COMFORT. ROXINOL AND IV ATIVAN COMMENCED PRN PER EMAR.
--- NOTE | 2024-08-15 02:09 | NUR ---
PT'S OXYGEN DEMAND HAS INCREASED GREATLY THROUGH THE NIGHT. CURRENTLY ON CPAP WHEREAS HIS SATURATIONS 89 PERCENT WITH 15 LITERS BLEED IN OXYGEN. PT'S SISTER IN ROOM EDGARD WHO STATES THAT SHE UNDERSTANDS THAT PT HAS DECLINE THROUGH THE NIGHT. HAS ASKED THAT PT BE MADE COMFORT CARE AT THIS TIME. SHE STATES SHE DOES WANT HIM TO JUST BE MADE COMFORTABLE. MARSHA FELIPE IN ROOM TO [facility]. PT HAD TOLD PRIMARY THAT HE DOES NOT LIKE TO HAVE MASK ON.
[2024-08-15] MEDS ORDERED: Atropine Sulfate 1% Opth Soln 2ML BTL SL PRN (02:15)
[2024-08-15] MEDS ORDERED: Ondansetron HCl 2 MG / ML 2ML Vial IV PRN (02:15)
[2024-08-15] MEDS ORDERED: Morphine Sulfate 20 MG/1ML 1 ML Oral Syringe SL PRN (02:15)
[2024-08-15] MEDS ORDERED: Scopolamine Hydrobromide Patch TOP PRN (02:20)
--- NOTE | 2024-08-15 05:32 | NUR ---
SUMMARY: PT MADE COMFORT MEASURES THIS SHIFT D/T RAPID DECLINE IN RESP.STATUS AND EXPRESSED DESIRE TO REMAIN DNR/DNI. HIS SISTER EDGARD IS AT BEDSIDE AND ASSISTED IN MAKING DECISION TO TRANSITION TO COMFORT CARE. HE REMAINS ON 12L O2 VIA OXIMASK FOR COMFORT AND IS RECEIVING PRN ROXINOL AND ATIVAN FOR AIR HUNGER. TURN SCHEDULE MAINTAINED W/PILLOWS PLACED FOR SUPPORT OF BONY PROMINENCES. NECK PILLOW AND TOWEL ROLLS IN IN PLACE FOR CERVICAL FX'S. MEPILEXES ARE C/D/I TO BUTTOCKS AND SPINE FOR SBD PREVENTION AND EXISTING SORES. ATTENDS CHANGE PRN FOR LOOSE STOOL AND BILAT NEPHROSTOMIES ARE PATENT/ DRAINING. L.NEPHROSTOMY OUTPUT IS CLEAR YELLOW AND R.NEPHROSTOMY UO IS PINK TINGED IN MUCH SMALLER AMT. WILL CONTINUE TO MED PRN AND REPORT TO DAY RN.
--- NOTE | 2024-08-15 06:39 | NUR ---
REPORT RECEIVED FROM CRISTIANE ZAZUETA RN AND PT T/F VIA EMIL TO ROOM 346 AT 0610. PT ORIENTED TO ROOM AND CALL SYSTEM W/CALL LIGHT IN REACH. PRN OXYCODONE PROVIDED PER EMAR AND DILAUDID RX CLARIFIED W/. WILL MEDICATE PRN AND REPORT TO DAY RN.
--- NOTE | 2024-08-15 10:36 | NUR ---
PATIENT AT 0855 THIS AM, VERIFIED BY 2 RN'S BY AUSCULTATION. FAMILY AT BEDSIDE AND OTHER FAMILY MEMBERS CALLED AT SISTERS REQUEST. DR GARCIA AND CHARGE NURSE NOTIFIED. FAMILY HAS [facility]. CHAPLAIN PRESTON CAME TO BEDSIDE. FAMILY REMAINS AT BEDSIDE AND DENIES ANY NEEDS AT THIS TIME.
--- NOTE | 2024-08-15 11:03 | NUR ---
Spiritual care visit conducted. I a rrive in the patient's room shortly after his demise. Family is present and grieving appropriately. I conducted a life review of the patient's tragic life and of his sacrificial and unconditional love that he expressed to others. I provided therapeutic listening and grief support to the family, as well as prayer and scripture reading (at their request). They responded well and showed signs of being comforted.
--- NOTE | 2024-08-15 14:03 | NUR ---
PATIENT PICKED UP BY [facility]. FACESHEET GIVEN TO [employer] PROFESSOR. FAMILY TOOK BELONGINGS HOME.
== END 2024-08-15 08:55 | DRG 698 ==
LOC: ER 13:37 → MEDS 20:28 → ERHOLD 20:28 → MEDS 23:12
PROVIDERS: Internal Medicine; Nurse Practitioner Acute Care; Student in an Organized Health Care Education/Training Program; ADMIT Student in an Organized Health Care Education/Training Program
DX: N99.521 Infection of incontinent external stoma of urinary tract (principal); A41.81 Sepsis due to Enterococcus; E43 Unspecified severe protein-calorie malnutrition; G93.41 Metabolic encephalopathy; R65.20 Severe sepsis without septic shock; Z68.1 Body mass index [BMI] 19.9 or less, adult; N17.9 Acute kidney failure, unspecified; C79.51 Secondary malignant neoplasm of bone; M84.58XA Pathological fracture in neoplastic disease, other specified site, initial encounter for fracture; C78.7 Secondary malignant neoplasm of liver and intrahepatic bile duct; R64 Cachexia; N39.0 Urinary tract infection, site not specified; E87.1 Hypo-osmolality and hyponatremia; E87.0 Hyperosmolality and hypernatremia; R44.3 Hallucinations, unspecified; N13.30 Unspecified hydronephrosis; C78.00 Secondary malignant neoplasm of unspecified lung; C78.2 Secondary malignant neoplasm of pleura; Z66 Do not resuscitate; Z51.5 Encounter for palliative care; E86.0 Dehydration; C67.9 Malignant neoplasm of bladder, unspecified; F17.210 Nicotine dependence, cigarettes, uncomplicated; E83.52 Hypercalcemia; D75.839 Thrombocytosis, unspecified; L89.152 Pressure ulcer of sacral region, stage 2; M54.2 Cervicalgia; E83.39 Other disorders of phosphorus metabolism; E87.6 Hypokalemia; E83.42 Hypomagnesemia; D50.9 Iron deficiency anemia, unspecified; D63.0 Anemia in neoplastic disease; N18.30 Chronic kidney disease, stage 3 unspecified; Q75.8 Other specified congenital malformations of skull and face bones
CPT/HCPCS: 36415; 71045; 71260; 72141; 74177; 80048; 80053; 81001; 82330; 82728; 83540; 83550; 83605; 83735; 84100; 85025; 85027; 85651; 86140; 87040; 87077; 87086; 87186; 92610; 93005; 93010; 94640; 94660; 94762; 96361; 96365-59; 96375; 97110; 97161; 99285-25; A9270; J0696; J0744; J1100; J1171; J1644; J2060; J2543; J2916; J3475; J3480; J7050; J7060; J7070; J7120; Q9967